=== PATIENT | female | born 1985 | race Caucasian/White ===

== ENCOUNTER 2016-08-29 20:35 | Emergency (ER) | payer SELFPAY ==
[~2016-08-29 20:35] MED LIST: AZOTAB2 OR; DIFL150T PO; EC-N500T7 PO; SULF1TAB47 PO
[2016-08-29 20:38] VITALS: BP 135/64; PULSE 114; RESP 18; TEMP 99; O2SAT 100
--- NOTE | 2016-08-29 20:48 | PD ---
Physical Exam Time Seen by Provider: 20:46 Narrative 31yo F c/o abd pain tot he R of her umbilicus since about 3pm. +vomiting. Denies fever. diarrhea. Also c/o of low back pain bilaterally. LMP August 09. Patient seen in triage. VS reviewed. Awaiting bed placement. Data Data Last Documented VS Vital Signs Date Time Temp Pulse Resp B/P Pulse Ox O2 Delivery O2 Flow Rate FiO2 08/29/16 20:38 99.0 114 18 135/64 100 Room Air MDM Supervised Visit with EDGARDO: Waleska Santiago Aug 29, 2016 20:48
[2016-08-29] MEDS ORDERED: SODIUM CHLOR 0.9% 1000 ML INJ 1,000 ML IV SCH (21:02)
[2016-08-29] MEDS ORDERED: SODIUM CHLORIDE 0.9% FLUSH 10 ML FLUSH IV FLUSH PRN (21:15)
[2016-08-29] MEDS ORDERED: ONDANSETRON HCL 4 MG/2 ML VIAL IVP ONE (21:15)
[2016-08-29 21:37] LABS: AUTOMATED NEUTROPHIL # 5.3 TH/MM3 (1.8-7.7); BASOPHIL # 0.1 TH/MM3 (0-0.2); BASOPHIL % 0.8 % (0.0-2.0); EOSINOPHIL # 0.1 TH/MM3 (0-0.4); EOSINOPHIL % 1.1 % (0.0-4.0); HEMATOCRIT 40.5 % (35.0-46.0); HEMO FLAGS DIFF FINAL; LYMPH % 31.2 % (9.0-44.0); LYMPHOCYTE # 2.7 TH/MM3 (1.0-4.8); MEAN CELL VOLUME 90.4 FL (80.0-100.0); MEAN CORPUSCULAR HEMOGLOBIN 32.4 PG (27.0-34.0); MEAN CORPUSCULAR HGB CONC 35.8 % (32.0-36.0); MONO % 5.7 % (0.0-8.0); NEUT % 61.2 % (16.0-70.0); PLATELET COUNT 247 TH/MM3 (150-450); RED BLOOD COUNT 4.48 MIL/MM3 (4.00-5.30); RED CELL DISTRIBUTION WIDTH 12.7 % (11.6-17.2); WHITE BLOOD COUNT 8.7 TH/MM3 (4.0-11.0)
[2016-08-29 21:40] LABS: BLOOD, URINE NEG (NEG); COMMENT (UR) CULT NOT INDICATED; CULTURE IF INDICATED CULT NOT INDICATED; GLUCOSE,URINE NEG (NEG); KETONE, URINE NEG (NEG); MUCUS URINE FEW /lpf (OCC); NITRITE,URINE NEG (NEG); SQUAMOUS EPITHELIAL CELL URINE 1 /hpf (0-5); URINE COLOR YELLOW (YELLW/STRAW)
[2016-08-29 21:50] LABS: APTT (PATIENT) 26.4 SEC (24.3-30.1); PROTHROMBIN TIME - PATIENT 10.6 SEC (9.8-11.6)
[2016-08-29 22:00] VITALS: RESP 22; O2SAT 99
[2016-08-29 22:04] LABS: ANION GAP 6 MEQ/L (5-15); AST (GOT) 11 U/L (15-37); BICARBONATE 26.9 MEQ/L (21.0-32.0); BLOOD UREA NITROGEN 10 MG/DL (7-18); CHLORIDE 108 MEQ/L (98-107); GLOMERULAR FILTRATION RATE 89 ML/MIN (>89); POTASSIUM 3.5 MEQ/L (3.5-5.1); SODIUM (NA) 141 MEQ/L (136-145)
[2016-08-29 22:05] LABS: ALT (GPT) 15 U/L (10-53)
[2016-08-29 22:08] LABS: ALKALINE PHOSPHATASE 39 U/L (45-117); TOTAL BILIRUBIN ADULT 0.3 MG/DL (0.2-1.0)
--- NOTE | 2016-08-29 22:28 | PD ---
HPI Chief Complaint: GI Complaint Time Seen by Provider: 21:00 Travel History International Travel<30 days: No Contact w/Intl Traveler<30days: No Traveled to known affect area: No History of Present Illness HPI 31-year-old female presents to the ED for evaluation of one day history of 4/10 periumbilical pain. Gradual onset, worsening throughout the day. States the pain is intermittent, crampy and radiates to the back occasionally. Patient endorses one episode of NBNB vomiting just after eating dinner tonight. She had a formed bowel movement before presentation. Denies fever, chills, dysuria , vaginal discharge. Patient states that she is very anxious because her mother was recently diagnosed with renal cancer. She acknowledges that anxiety may be feeling her abdominal pain today. LMP mid July. PFSH Past Medical History Anxiety: Yes Diminished Hearing: No Kidney Stones: Yes Seizures: Yes ?: Not LMP: 08/09/16 : 0 Past Surgical History Surgical History: No Previous Surgery Social History Alcohol Use: Yes Tobacco Use: Yes (1/2 PPD) Substance Use: Yes (POT.) Allergies-Medications (Allergen,Severity, Reaction): Coded Allergies: Lortab (Verified Adverse Reaction, Mild, EMESIS, 08/29/16) Reported Meds & Prescriptions Reported Meds & Active Scripts Active Vistaril (Hydroxyzine Pamoate) 50 Mg Cap 50 Mg PO TID Review of Systems Except as stated in HPI: all other systems reviewed are Neg Physical Exam Narrative GENERAL: Well-nourished, well-developed patient. SKIN: Focused skin assessment warm/dry. HEAD: Normocephalic. EYES: No scleral icterus. No injection or drainage. NECK: Supple, trachea midline. No JVD or lymphadenopathy. CARDIOVASCULAR: Regular rate and rhythm without murmurs, gallops, or rubs. RESPIRATORY: Breath sounds equal bilaterally. No accessory muscle use. GASTROINTESTINAL: Abdomen soft, non-tender, nondistended. MUSCULOSKELETAL: No cyanosis, or edema. BACK: Nontender without obvious deformity. No CVA tenderness. Data Data Last Documented VS Vital Signs Date Time Temp Pulse Resp B/P Pulse Ox O2 Delivery O2 Flow Rate FiO2 08/29/16 22:00 22 99 Room Air 08/29/16 20:38 99.0 114 135/64 Orders Complete Blood Count With Diff (08/29/16 21:02) Comprehensive Metabolic Panel (08/29/16 21:02) Lipase (08/29/16 21:02) Lactic Acid (08/29/16 21:02) Prothrombin Time / Inr (Pt) (08/29/16 21:) Act Partial Throm Time (Ptt) (08/29/16 21:) Urinalysis - C+S If Indicated (08/29/16 21:) Iv Access Insert/Monitor (08/29/16 21:) Ecg Monitoring (08/29/16 21:) Oximetry (08/29/16 21:) NPO (08/29/16 21:) Ondansetron Inj (Zofran Inj) (08/29/16 21:15) Sodium Chlor 0.9% 1000 Ml Inj (Ns 1000 M (08/29/16 21:) Sodium Chloride 0.9% Flush (Ns Flush) (08/29/16:) Ed Urine Pregnancytest Poc (08/29/16 21:) Labs Laboratory Tests Test 08/29/16 21:15 White Blood Count 8.7 TH/MM3 Red Blood Count 4.48 MIL/MM3 Hemoglobin 14.5 GM/DL Hematocrit 40.5 % Mean Corpuscular Volume 90.4 FL Mean Corpuscular Hemoglobin 32.4 PG Mean Corpuscular Hemoglobin 35.8 % Concent Red Cell Distribution Width 12.7 % Platelet Count 247 TH/MM3 Mean Platelet Volume 7.5 FL Neutrophils (%) (Auto) 61.2 % Lymphocytes (%) (Auto) 31.2 % Monocytes (%) (Auto) 5.7 % Eosinophils (%) (Auto) 1.1 % Basophils (%) (Auto) 0.8 % Neutrophils # (Auto) 5.3 TH/MM3 Lymphocytes # (Auto) 2.7 TH/MM3 Monocytes # (Auto) 0.5 TH/MM3 Eosinophils # (Auto) 0.1 TH/MM3 Basophils # (Auto) 0.1 TH/MM3 CBC Comment DIFF FINAL Differential Comment Prothrombin Time 10.6 SEC Prothromb Time International 1.0 RATIO Ratio Activated Partial 26.4 SEC Thromboplast Time Urine Color YELLOW Urine Turbidity CLEAR Urine pH 6.0 Urine Specific [place] 1.013 Urine Protein NEG mg/dL Urine Glucose (UA) NEG mg/dL Urine Ketones NEG mg/dL Urine Occult Blood NEG Urine Nitrite NEG Urine Bilirubin NEG Urine Urobilinogen LESS THAN 2.0 MG/DL Urine Leukocyte Esterase NEG Urine RBC LESS THAN 1 /hpf Urine WBC 1 /hpf Urine Squamous Epithelial 1 /hpf Cells Urine Mucus FEW /lpf Microscopic Urinalysis Comment CULT NOT INDICATED Sodium Level 141 MEQ/L Potassium Level 3.5 MEQ/L Chloride Level 108 MEQ/L Carbon Dioxide Level 26.9 MEQ/L Anion Gap 6 MEQ/L Blood Urea Nitrogen 10 MG/DL Creatinine 0.76 MG/DL Estimat Glomerular Filtration 89 ML/MIN Rate Random Glucose 90 MG/DL Lactic Acid Level 0.7 mmol/L Calcium Level 9.0 MG/DL Total Bilirubin 0.3 MG/DL Aspartate Amino Transf 11 U/L (AST/SGOT) Alanine Aminotransferase 15 U/L (ALT/SGPT) Alkaline Phosphatase 39 U/L Total Protein 7.6 GM/DL Albumin 4.1 GM/DL Lipase 117 U/L [facility] Medical Decision Making Medical Screen Exam Complete: Yes Emergency Medical Condition: Yes Differential Diagnosis Early appendicitis versus versus colitis versus UTI versus nephroureterolithiasis versus other Narrative Course 31-year-old female presents to the ED for evaluation of one day history of 4/10 intermittent, crampy periumbilical pain. Gradual onset, worsening throughout the day, radiates to the back occasionally. Patient endorses one episode of NBNB vomiting just after eating dinner tonight. She had a well formed bowel movement before presentation. Denies fever, chills, dysuria, vaginal discharge. Patient states that she is very anxious because her mother was recently diagnosed with renal cancer. She acknowledges that anxiety may be fueling her abdominal pain today. LMP mid July. Patient is tachycardic on presentation, resolved in the exam room. She is extremely anxious and tearful during the evaluation. Abdominal exam with mild periumbilical tenderness, otherwise unremarkable. No CVA tenderness. She was administered 1LNS, 4mg Zofran. No abnormalities of CBC, chemistries, coags, UA. Lipase, lactic and LFTs unremarkable. UPT negative. I discussed the results of the workup with the patient. She was reassured by the results. I prescribed a trial of Vistaril for her anxiety. I cautioned her not to drive while taking the medication. I discussed the need to return for worsening of symptoms, given that early appendicitis is in the differential. The patient indicated understanding of the instructions and is agreeable to the care plan. She is stable and discharged home. Diagnosis Primary Impression: Periumbilical abdominal pain Additional Impression: Anxiety Referrals: [facility] Patient Instructions: Abdominal Pain (ED), Anxiety (ED), General Instructions Additional Instructions: Rest, hydrate. Take Vistaril as discussed, as needed for anxiety. Do not drive while taking Vistaril. Follow-up with the [facility] as discussed. Return to the ED for any urgent or emergent medical condition. Med/Other Pt SpecificInfo: Prescription(s) given Scripts Hydroxyzine Pamoate (Vistaril)50 Mg Cap50 Mg PO TID #10 CAP Ref 0 Prov:Xiao Sharp DO 08/29/16 Disposition: 01 DISCHARGE HOME Condition: Stable Angela Rice Aug 29, 2016 22:28
[2016-08-29] MEDS ORDERED: VIST50CA PO (22:40)
== END 2016-08-29 23:28 | disposition home or self-care (01) ==
LOC: NEPC 20:35
DX: R10.33 Periumbilical pain (principal); F41.9 Anxiety disorder, unspecified; F17.210 Nicotine dependence, cigarettes, uncomplicated; F12.90 Cannabis use, unspecified, uncomplicated
CPT/HCPCS: 80053; 81001; 83605; 83690; 84703; 85025; 85610; 85730; 96361; 96374; 99284; J2405; J7030